=== PATIENT | female | born 1975 | race Caucasian/White ===

== ENCOUNTER 2017-03-18 15:18 | Emergency (ER) | payer SELFPAY ==
[~2017-03-18 15:18] MED LIST: BACT800T5 PO; CEPH500C3 PO
[2017-03-18 15:19] VITALS: BP 106/66; PULSE 95; RESP 12; TEMP 98.2; O2SAT 99
[2017-03-18 16:06] LABS: AUTOMATED NEUTROPHIL # 14.4 TH/MM3 (1.8-7.7); BASOPHIL % 0.1 % (0.0-2.0); EOSINOPHIL % 0.1 % (0.0-4.0); HEMO FLAGS DIFF FINAL; LYMPH % 7.5 % (9.0-44.0); LYMPHOCYTE # 1.2 TH/MM3 (1.0-4.8); MEAN CELL VOLUME 96.5 FL (80.0-100.0); MEAN CORPUSCULAR HEMOGLOBIN 32.8 PG (27.0-34.0); MONO % 4.8 % (0.0-8.0); NEUT % 87.5 % (16.0-70.0); PLATELET COUNT 224 TH/MM3 (150-450); RED BLOOD COUNT 4.24 MIL/MM3 (4.00-5.30); RED CELL DISTRIBUTION WIDTH 12.7 % (11.6-17.2); WHITE BLOOD COUNT 16.5 TH/MM3 (4.0-11.0)
--- NOTE | 2017-03-18 16:13 | RADRPT ---
EXAM DATE/TIME: 03/18/2017 15:49 [place] COMPARISON: No previous studies available for comparison. INDICATIONS : Large red unhealing wound distal to knee joint on left side. MEDICAL HISTORY : IVDU according to patient SURGICAL HISTORY : None. ENCOUNTER: Initial ACUITY: 2 days PAIN SCORE: 8/10 LOCATION: Left knee FINDINGS: Two view examination of the left knee demonstrates no evidence of fracture or dislocation. Bony mine ralization is normal. The suprapatellar soft tissues have a normal configuration. CONCLUSION: Negative Christiano Tong MD FACR on March 18, 2017 at 16:11 Board Certified Radiologist. This report was verified electronically.
[2017-03-18 16:28] LABS: BICARBONATE 24.5 MEQ/L (21.0-32.0); POTASSIUM 4.1 MEQ/L (3.5-5.1)
--- NOTE | 2017-03-18 16:39 | PD ---
HPI Chief Complaint: Skin Problem Time Seen by Provider: 16:39 Travel History International Travel<30 days: No Contact w/Intl Traveler<30days: No Traveled to known affect area: No History of Present Illness HPI 41-year-old female presents to the emergency department for evaluation of a painful lesion on the anterior aspect of her left lower extremity just distal to her knee. Patient states she noticed it yesterday and is much larger with surrounding erythema and edema today. He has not been feeling well. The pain is severe, throbbing, constant. States she is having difficulty straightening and bending the left knee. She does not recall any trauma. She does have a remote history of IV drug abuse. She has had no fever or chills. She has no other symptoms to report. [facility] Past Medical History Heart Rhythm Problems: Yes (zita) Diminished Hearing: No : 5 Para: 3 Ovarian Cysts: Yes (LEEP AND LAPROSCOPY FOR RIGHT OVARIAN CYST) Past Surgical History Section: Yes (2005) Gynecologic Surgery: Yes (inverted uterus repair) Hysterectomy: Yes Oral Surgery: Yes Social History Alcohol Use: No Tobacco Use: Yes Substance Use: Yes (shoots dilaudid ) Allergies-Medications (Allergen,Severity, Reaction): Coded Allergies: ketorolac (Unverified Allergy, Severe, RASH, 12/04/16) penicillin G (Unverified Allergy, Severe, RASH, 12/04/16) Reported Meds & Prescriptions Reported Meds & Active Scripts Active Keflex (Cephalexin Monohydrate) 500 Mg Cap 500 Mg PO 4 TIMES A DAY Bactrim DS (Sulfamethoxazole-Trimethoprim DS) 1 Tab Tab 1 Tab PO BID Review of Systems Except as stated in HPI: all other systems reviewed are Neg Physical Exam Narrative GENERAL: Well-nourished female patient, sitting in bed in no acute distress SKIN: Focused skin assessment warm/dry. There is an indurated area distal to the left knee which measures about 3 cm in diameter. It is fluctuant but there is no pointing or drainage. There is a zone of inflammation around it but no lymphangitis. HEAD: Atraumatic. Normocephalic. EYES: Pupils equal and round. No scleral icterus. No injection or drainage. ENT: No nasal bleeding or discharge. Mucous membranes pink and moist. NECK: Trachea midline. No JVD. CARDIOVASCULAR: Elevated. Rate RESPIRATORY: No accessory muscle use. GASTROINTESTINAL: Abdomen nondistended MUSCULOSKELETAL: No obvious deformities. Edema and erythema of the anterior left distal lower extremity. The area extends 30 cm in diameter. The center of the abscess as described above. NEUROLOGICAL: Awake and alert. No obvious cranial nerve deficits. Motor grossly within normal limits. Normal speech. Data Data Last Documented VS Vital Signs Date Time Temp Pulse Resp B/P (MAP) Pulse Ox O2 Delivery O2 Flow Rate FiO2 03/18/17 15:19 98.2 95 12 106/66 (79) 99 Orders Orders Complete Blood Count With Diff (03/18/17 15:35) Basic Metabolic Panel (Bmp) (03/18/17 15:35) Knee, Ltd (1 Or 2vws) (03/18/17 ) Labs Laboratory Tests Test 03/18/17 15:40 White Blood Count 16.5 TH/MM3 Red Blood Count 4.24 MIL/MM3 Hemoglobin 13.9 GM/DL Hematocrit 41.0 % Mean Corpuscular Volume 96.5 FL Mean Corpuscular Hemoglobin 32.8 PG Mean Corpuscular Hemoglobin Concent 34.0 % Red Cell Distribution Width 12.7 % Platelet Count 224 TH/MM3 Mean Platelet Volume 8.1 FL Neutrophils (%) (Auto) 87.5 % Lymphocytes (%) (Auto) 7.5 % Monocytes (%) (Auto) 4.8 % Eosinophils (%) (Auto) 0.1 % Basophils (%) (Auto) 0.1 % Neutrophils # (Auto) 14.4 TH/MM3 Lymphocytes # (Auto) 1.2 TH/MM3 Monocytes # (Auto) 0.8 TH/MM3 Eosinophils # (Auto) 0.0 TH/MM3 Basophils # (Auto) 0.0 TH/MM3 CBC Comment DIFF FINAL Differential Comment Blood Urea Nitrogen 11 MG/DL Creatinine 0.92 MG/DL Random Glucose 131 MG/DL Calcium Level 8.5 MG/DL Sodium Level 131 MEQ/L Potassium Level 4.1 MEQ/L Chloride Level 101 MEQ/L Carbon Dioxide Level 24.5 MEQ/L Anion Gap 6 MEQ/L Estimat Glomerular Filtration Rate 68 ML/MIN [facility] Medical Decision Making Medical Screen Exam Complete: Yes Emergency Medical Condition: Yes Medical Record Reviewed: Yes Differential Diagnosis Abscess versus cellulitis versus septic joint versus sepsis Narrative Course 41-year-old female presents to the emergency department for evaluation of left lower extremity lesion. Workup was initiated in triage. AMA: The risks of leaving against medical advice without further evaluation treatment were discussed with the patient. These risks include cardiac dysfunction, cardiac dysrhythmia, possible heart attack, possible stroke or . The patient indicated understanding of these risks and appeared to have the capacity to make this decision. Diagnosis Primary Impression: Cellulitis and abscess of left leg Disposition: 07 AGAINST MEDICAL ADVICE Condition: Stable EllisonMary del valle MAGDALENA Mar 18, 2017 16:39
== END 2017-03-18 16:45 | disposition left against medical advice (07) ==
LOC: NED 15:18
DX: L03.116 Cellulitis of left lower limb (principal); L02.416 Cutaneous abscess of left lower limb; Z72.0 Tobacco use
CPT/HCPCS: 73560; 80048; 85025; 99284